=== PATIENT | male | born 1955 | race Caucasian/White ===

== ENCOUNTER → 2016-10-24 | Day surgery (SDC) | payer OTHER ==
[2016-10-16 08:03] VITALS: BMI 42.0
[~2016-10-24] VITALS: Ht 180.3 cm; Wt 137.3 kg
[~2016-10-24] MED LIST: ASPCH81X PO; ATOR-26 PO; FENTANYL CITRATE INJ 50 MCG/1 ML 2 ML VIAL ONE; GABA-112 PO; HYDR-4079 PO; HYT/2 PO; INSDGI SC; LIDOCAINE HCL 2% 2 ML VIAL (20MG/ML) ONE; LISI-786 PO; METF1TAB53 PO; NVLG SC; PROPOFOL IV EMULSION 10 MG/ML 20 ML VIAL IV ONE; SERT-234 PO; SODIUM CHLORIDE 0.9% 500ML 500 ML IV ONE; ZNTT/150 PO
--- NOTE | 2016-10-24 08:41 | Endo History and Physical ---
History & Physical Date of Service: Oct 24, 2016. Chief Complaint: Referring Physician: History of Present Illness 61 yo presenting for evaluation for screening colonoscopy Past Surgical History Hx Cardiac Surgery: No Hx Internal Defibrillator: No Hx Pacemaker: No Hx Abdominal Surgery: No Hx of Implantable Prosthesis: No Hx Post-Op Nausea and Vomiting: No Hx Cancer Surgery: No Hx Thoracic Surgery: No Hx Orthopedic: Yes (RT/LEFT CTR) Hx Urinary Tract Surgery: No Family History None Social History Smoking Status: Former Smoker Hx Substance Use: No Hx Alcohol Use: No Allergies Coded Allergies: Simvastatin (Verified Allergy, Unknown, DIDNT LIKE THE WAY HE FELT, ) Uncoded Allergies: RED GRAPES (Allergy, Unknown, COUGH, 10/16/16) Current Medications Reported Home Medications Medications Dose Route/Sig Max Daily Dose Days Date Category Dose Instructions Novolog (Insulin Aspart) 100 Units/Ml Inj 1 Dose SC TID 10/16/16 Reported 20 UNITS IN AM 25 UNITS AT LUNCH 20-25 UNITS IN PM Glucophage Ext Rel (Metformin Hcl) 1,000 Mg Tab 1,000 Mg PO QAM 10/16/16 Reported Hytrin (Terazosin HCl) 2 Mg Cap 2 Mg PO HS 10/16/16 Reported Zoloft (Sertraline HCl) 100 Mg Tab 2 Tab PO QAM 10/16/16 Reported Zantac (Ranitidine HCl) 150 Mg Tab 150 Mg PO BID 10/16/16 Reported Lantus (Insulin Glargine) 100 Unit/Ml Inj 60 Units SC BID 10/16/16 Reported Blount 10MG/325MG (Acetaminophen/Hydrocodone Bitart) Tab 1-2 Tab PO Q6H PRN 10/16/16 Reported PRN PAIN Zestoretic (Lisinopril & Hydrochlorothiazi) 1 Tab Tab 1 Tab PO BID 10/16/16 Reported Neurontin (Gabapentin) 100 Mg Cap 100 Mg PO BID 10/16/16 Reported Lipitor (Atorvastatin Calcium) 80 Mg Tab 80 Mg PO HS 10/16/16 Reported Aspirin Chewable (Aspirin) 81 Mg Chew 81 Mg PO QAM 10/16/16 Reported Vital Signs Weight (Kilograms): 137.27 Height (Feet): 0 Height (Inches): 70.5 Physical Exam General Appearance: WD/WN, no apparent distress Respiratory/Chest: Respiratory effort: no dyspnea Auscultation: breath sounds normal, CTA except as noted, no wheezing Cardiovascular: Apical Impulse: not displaced Heart Auscultation: RRR, normal S1, normal S2 Abdomen: Bowel Sounds: normal Inspection & Palpation: soft, non-distended Assessment and Plan 61 yo presenting for colonoscopy for screening
[2016-10-24 08:50] VITALS: Ht 180.3 cm; Wt 137.3 kg
--- NOTE | 2016-10-24 09:41 | Discharge Instructions ---
Endoscopy Patient Instructions Date / Procedure(s) Performed Oct 24, 2016. Colonoscopy Allergy Information Coded Allergies: Simvastatin (Verified Allergy, Unknown, DIDNT LIKE THE WAY HE FELT, 10/24/16 ) Uncoded Allergies: RED GRAPES (Allergy, Unknown, COUGH, 10/16/16) Discharge Date / Findings Oct 24, 2016. 5 polyps all removed You will be contacted with pathology Plan on repeating exam in 3 years Medication Instructions Stopped Medication(s): all medication stopped for 2 days Provider Instructions Activity Restrictions - No exercising or heavy lifting for 24 hours. - Do not drink alcohol the day of the procedure. - Do not drive a car or operate machinery until the day after the procedure. - Do not make any important decisions or sign important papers in 24 hours after the procedure. Following Day: - Return to full activity which may include returning to work/school. Diet Start your diet with liquids and light foods (jello, soup, juice, toast). Then eat your usual diet if not nauseated. Treatment For Common After Affects For mild abdominal pain, bloating, or excessive gas: - Rest - Eat lightly - Lie on right side Follow-Up Information Follow-up with Dr. Garner as scheduled Anesthesia Information What You Should Know You have had a procedure that required some medicine to reduce anxiety and discomfort. This treatment is called moderate sedation. After receiving the treatment, you may be sleepy, but you will be able to breathe on your own. The effects of the treatment may last for several hours. Follow these instructions along with Activity/Diet recommendations noted above: * Do NOT do anything where dizziness or clumsiness would be dangerous. * Rest quietly at home today, then you can be up and about tomorrow. * Have a responsible person stay with you the rest of today. * You may have had an I.V. today. If so, you may take the dressing off later today. Recommendations Call your doctor if: * Trouble breathing * Continuous vomiting for more than 24 hours * Temperature above 101 degrees * Severe abdominal pain or bloating * Pain not relieved by pain medicine ordered * There is increased drainage or redness from any incision * A large amount of rectal bleeding greater than 2-3 tablespoons. (If you had a polyp/s removed or have hemorrhoids, a small amount of blood - from the rectum is to be expected.) * You have any unanswered questions or concerns. IN THE EVENT OF A SERIOUS EMERGENCY, GO TO THE NEAREST EMERGENCY ROOM Your discharge instructions were prepared by provider Jose Armando Henning. Patient Instructions Signature Page Ko De León Patient (or Guardian) Signature/Date: I have read and understand the instructions given to me by my caregivers. Caregiver/RN/Doctor Signature/Date: The above-named patient and/or guardian has received patient instructions on this date. + Original Patient Signature Page (only) stays with chart. Please make copy for patient.
--- NOTE | 2016-10-24 09:46 | GI REPORT ---
Procedure Date: 10/24/2016 8:48 AM Procedure: Colonoscopy Indications: High risk colon cancer surveillance: Personal history of colonic polyps Medicines: General Anesthesia Complications: No immediate complications. Estimated blood loss: None. Estimated Blood Loss: Estimated blood loss: none. Procedure: Pre-Anesthesia Assessment: - Pre-Anesthesia Assessment: - Prior to the procedure, a History and Physical was performed, and patient medications, allergies and sensitivities were reviewed. The patient's tolerance of previous anesthesia was reviewed. Please see [facility] for complete details. - The risks and benefits of the procedure and the sedation options and risks were discussed with the patient. All questions were answered and informed consent was obtained. - Patient identification and proposed procedure were verified prior to the procedure by the physician and the nurse. The procedure was verified in the pre-procedure area in the procedure room. After obtaining informed consent, the endoscope was passed carefully and meticuously under direct vision and only advanced when the lumen was clearly identified, C02 insuflation was utilized throughout the entirity of the procedure. Throughout the procedure, the patient's blood pressure, pulse, and oxygen saturations were monitored continuously. After I obtained informed consent, the scope was passed under direct vision. Throughout the procedure, the patient's blood pressure, pulse, and oxygen saturations were monitored continuously. The Scope was introduced through the anus and advanced to the terminal ileum, with identification of the appendiceal orifice and IC valve. The colonoscopy was performed without difficulty. The patient tolerated the procedure well. The quality of the bowel preparation was fair. Findings: Two sessile polyps were found in the ascending colon. The polyps were 3 to 4 mm in size. These polyps were removed with a cold snare. Resection and retrieval were complete. Three sessile polyps were found in the transverse colon. The polyps were 3 to 4 mm in size. These polyps were removed with a cold snare. Resection and retrieval were complete. Multiple small-mouthed diverticula were found in the sigmoid colon and in the descending colon. The terminal ileum appeared normal. Internal hemorrhoids were found during retroflexion. Impression: - Two 3 to 4 mm polyps in the ascending colon, removed with a cold snare. Resected and retrieved. - Three 3 to 4 mm polyps in the transverse colon, removed with a cold snare. Resected and retrieved. - Diverticulosis in the sigmoid colon and in the descending colon. - The examined portion of the ileum was normal. - Internal hemorrhoids. Recommendation: - Repeat colonoscopy in 3 years for surveillance based on pathology results. - Return to referring physician as previously scheduled. - Patient has a contact number available for emergencies. The signs and symptoms of potential delayed complications were discussed with the patient. Return to normal activities tomorrow. Written discharge instructions were provided to the patient. - Discharge patient to home (with escort). Jose Armando Henning MD 10/24/2016 9:46:26 AM This report has been signed electronically. Note Initiated On: 10/24/2016 8:48 AM
[2016-10-24 10:09] VITALS: BP 141/72; PULSE 86; O2SAT 93
--- NOTE | 2016-10-24 10:51 | Anesthesiology Progress Note ---
Anesthesia Post Op Note Date & Time Oct 24, 2016 at 10:51 Vital Signs Pain Intensity: 0 Vital Signs Past 12 Hours Date Time Temp Pulse Resp B/P Pulse Ox O2 Delivery O2 Flow Rate FiO2 10/24/16 10:09 86 18 141/72 93 Room Air 10/24/16 09:54 90 18 138/75 92 Room Air 10/24/16 09:39 96 16 129/73 92 Room Air 10/24/16 08:58 37.1 97 20 177/76 92 Room Air Notes Mental Status: alert / awake / arousable, participated in evaluation Pt Amnestic to Procedure: Yes Nausea / Vomiting: adequately controlled Pain: adequately controlled Airway Patency, RR, SpO2: stable & adequate BP & HR: stable & adequate Hydration State: stable & adequate Anesthetic Complications: no major complications apparent
== END | disposition home or self-care (01) ==
LOC: C.GI 08:03
PROVIDERS: ATTEND Internal Medicine
DX: Z12.11 Encounter for screening for malignant neoplasm of colon (principal); Z86.010 Personal history of colon polyps; D12.2 Benign neoplasm of ascending colon; D12.3 Benign neoplasm of transverse colon; K57.30 Diverticulosis of large intestine without perforation or abscess without bleeding; K64.8 Other hemorrhoids; Z87.891 Personal history of nicotine dependence; Z79.4 Long term (current) use of insulin; Z79.82 Long term (current) use of aspirin; Z88.8 Allergy status to other drugs, medicaments and biological substances

== ENCOUNTER → 2017-06-04 | Outpatient (CLI) | payer OTHER ==
[~2017-06-04] MED LIST changes: -FENTANYL CITRATE INJ 50 MCG/1 ML 2 ML VIAL ONE; -LIDOCAINE HCL 2% 2 ML VIAL (20MG/ML) ONE; -PROPOFOL IV EMULSION 10 MG/ML 20 ML VIAL IV ONE; -SODIUM CHLORIDE 0.9% 500ML 500 ML IV ONE
--- NOTE | 2017-06-05 06:34 | SPLIT NIGHT TECHNICIAN REPORT ---
[facility] Split Night Polysomnogram - Social Science Teacher Report Study date: 06/04/2017 Referring Physician: MASSIMO LEDEZMA Name: WALKER DE LEÓN Social Science Teacher: ANAHY Mckeon. Date of : 1955 Height: 62 years, Height 5' 10.5" Sex: Male Weight: 340 lbs Age: 62 BMI: Medications: 48.09 Hydrocodone/Acetaminophen 7.5/325 mg, HCTZ12.5/Lisinopril 20 mg, Sertraline 100 mg, Aspirin 81 mg, Ranitidine 150 mg, Terazosin 2 mg, Gabapentin 300 mg, Atorvastatin 80 mg, Cyclobenzaprine 10 mg, Insulin, Fluticasone Patient History 62 yr. old male here for a diagnostic sleep study in room 2. Patient complains of snoring, and unrefreshed sleep. Patients [place] Sleepiness Scale score is 9/24. Parameters Monitored NPSG: E1-M2, E2-M1, Fp1-M2, Fp2-M1, F3-M2, F4-M2, F4-M1, C3-M2, C4-M2, C4-M1, O1-M2, O2-M2, O2-M1, T3-M2, T4-M1, P3-M2, P4-M1, CHIN1, CHIN2, HR, EKG, Legs, PFLOW, SNOR, FLOW, CFLOW, Tidal Volume, THOR, ABDO, SpO2, PLTH, CPRESS, ETCO2 Wave, ETCO2, pH SLEEP SUMMARY DATA DIAGNOSTIC TREATMENT Lights Out: 7:44:41 PM 11:06:11 PM Lights On: 11:00:11 PM 6:08:11 AM Total Recording Time (TRT): 195.5 min. 423.0 min. Total Sleep Time (TST): 148.5 min. 352.0 min. NREM Time: 148.5 min. 275.0 min. REM Time: 0.0 min. 77.0 min. Sleep Period Time (SPT): 161.5 min. 415.0 min. Sleep Efficiency (SE): 76 % 83 % Sleep Latency: 34.0 min. 7.0 min. Arousal Index: 23.8 4.4 PAP Treatment Levels: 4, 5, 6, 7, 8, 9, 10, 11, 12, 13, 14 * Optimal Pressure(s) SLEEP STAGING DATA DIAGNOSTIC TREATMENT Duration (min) TST % Duration (min) TST % Stage Wake: 47.0 min. -- 70.0 min. -- WASO: 13.0 min. -- 63.0 min. -- NREM: 148.5 min. 100 % 275.0 min. 78 % Stage N1: 34.0 min. 23 % 26.5 min. 8 % Stage N2: 114.5 min. 77 % 142.5 min. 40 % Stage N3: 0.0 min. 0 % 106.0 min. 30 % REM: 0.0 min. 0 % 77.0 min. 22 % POSITIONAL DATA Event Count Index Event Count Index Supine: 144 59.4 N/A N/A Supine NREM: 144 59.4 N/A N/A Supine REM: N/A N/A N/A N/A Non-Supine: 1 20.0 82 13.8 Non-Supine NREM: 1 20.0 57 12.2 Non-Supine REM: N/A N/A 25 19.5 AROUSAL SUMMARY DATA: Event Count Index Event Count Index Apnea Arousals: 10 12.1 0 1.9 Hypopnea Arousals: 21 8.5 7 1.2 Snore Arousals: 14 5.7 4 0.7 PLM Arousals: 0 0.0 9 1.5 Non-Specific Arousals: 15 6.1 6 1.0 Total Arousals: 59 23.8 26 4.4 MYOCLONUS (PLM) Event Count Index Event Count Index PLM: 0 0.0 86 14.7 PLM AROUSAL: 0 0.0 9 1.5 PLM W/O AROUSAL 0 0.0 77 13.1 PLM W/RESP EVENT 0 0.0 1 0.0 MYOCLONUS (PLM) Event Count Index Event Count Index LM: 4 11.7 88 15.0 LM AROUSAL: 4 1.6 2 0.3 LM W/O AROUSAL LM W/RESP EVENT LM NON SPECIFIC 19 7.7 155 26.4 HEART RATE DATA DIAGNOSTIC TREATMENT Sleep (bpm): 80 80 REM (bpm): N/A 84 NREM (bpm): 88 87 Tachycardia Count: 0 0 Tachycardia Duration: 0.00 0 Bradycardia Count: 0 0 Bradycardia Duration: 0.00 0 DIAGNOSTIC PORTION TREATMENT PORTION RESPIRATORY DATA Event Count Index Event Count Index AHI: -- 58.6 -- 13.8 RDI: -- 58.6 -- 14 Obstructive Apnea: 29 11.7 10 1.7 Central Apnea: 1 0.4 1 0.2 Mixed Apnea: 0 0.0 0 0.0 Hypopnea: 115 46.5 70 11.9 RERA: 0 0.0 1 0.2 Total Apneas: 30 12.1 11 1.9 RESPIRATORY DATA REM NREM SLEEP REM NREM SLEEP Supine Position: Obstructive Apneas: N/A 29 29 N/A N/A N/A Central Apneas: N/A 1 1 N/A N/A N/A Mixed Apneas: N/A 0 0 N/A N/A N/A Hypopneas: N/A 114 114 N/A N/A N/A RERA N/A 0 0 N/A N/A N/A Total Supine Events: N/A 144 144 N/A N/A N/A Supine AHI: N/A 59.4 59.4 N/A N/A N/A Supine RDI: N/A 59.4 59.4 N/A N/A N/A REM NREM SLEEP REM NREM SLEEP Non-Supine Position: Obstructive Apneas: N/A 0 0 9 1 10 Central Apneas: N/A 0 0 1 0 1 Mixed Apneas: N/A 0 0 0 0 0 Hypopneas: N/A 1 1 15 55 70 RERA N/A 0 0 0 1 1 Total Supine Events: N/A 1 1 25 57 82 Supine AHI: N/A 20.0 20.0 19.5 12.2 13.8 Supine RDI: N/A 20.0 20.0 19.5 12.4 14.0 OXYGEN DESTAURATION DATA: Event Count Index Event Count Index REM Desaturations: N/A N/A 28 21.8 NREM Desaturations: 205 82.8 75 16.4 SNORE DATA DIAGNOSTIC TREATMENT Snore Time: 6.5 11:13:11 PM Snore TST%: 2 13 Snore Arousal Count: 14 4 Snore Arousal Index: 5.7 0.7 Desaturation Event Summary: Minimum %SpO2 Event Count Mean/Min/Max Duration(sec.) Desaturation Index % Time In Bed > 90 115 22.5 / 5.5 / 60.0 122.0 9.5 86 - 90 281 16.1 / 4.3 / 60.0 40.7 69.4 81 - 85 26 17.9 / 5.8 / 54.3 14.5 18.1 76 - 80 10 24.3 / 8.8 / 43.3 70.2 1.4 71 - 75 5 18.6 / 8.8 / 31.3 61.8 0.8 66 - 70 5 21.4 / 9.0 / 51.5 139.3 0.4 61 - 65 1 14.5 / 14.5 / 14.5 34.5 0.3 56 - 60 0 N/A 0.0 0.1 51 - 55 0 N/A 0.0 0.0 < 50 0 N/A 0.0 0.0 OXYGEN SATURATION DATA DIAGNOSTIC TREATMENT SpO2 Mean Sleep: 88 % 86 % SpO2 Mean REM: N/A % 84 % SpO2 Mean NREM: 88 % 87 % SpO2 Minimum Sleep: 76 % 57 % SpO2 Minimum REM: N/A % 57 % SpO2 Minimum NREM: 76 % 64 % Time Below 90% (TST): 119.3 314.0 Time Below 88% (TST): 74.5 226.4 Total REM NREM Awake <50% 0.0 min. 0.0 min. 0.0 min. 0.0 min. 51 - 60% 0.9 min. 0.9 min. 0.0 min. 0.0 min. 61 - 70% 3.9 min. 3.8 min. 0.1 min. 0.0 min. 71 - 80% 13.4 min. 11.4 min. 1.7 min. 0.3 min. 81 - 90% 522.5 min. 59.1 min. 394.6 min. 68.8 min. 91 - 100% 56.5 min. 1.5 min. 26.7 min. 28.4 min. Average 87 84 87 89 Minimum SpO2 57 57 64 78 Desaturation Event Index 33.9 21.8 39.7 23.6 # Desat. Events below 89% 339 28 273 38 Time(%) with Saturation below 89% 70.0 9.4 53.7 6.9 Time(min.) with Saturation below 89% 417.8 56.2 320.7 41.0 Recording Social Science Teacher Comments: Mr. De León slept in the right, left, and, supine positions. Cardiac arrhythmia ( occasional PVC) and PLMs noted. No bruxism noted. Snoring was noted and scored as a 4 on a scale of 0 through 5. (0=no snoring, 5=snoring loud enough to be heard through a closed door or down the beltran way) At 11:06 pm Mr. De León met specific Split-Night criteria during the diagnostic portion of this study. CPAP was initiated at +4 CMH2O room air and up-titrated to a level of +12 CMH2O Cflex 2. At 4:20 am oxygen was started, he was on 11 CWP for over two hours. REM was achieved for the first time after 02 was added and his pressure needed increased, oxygen was turned off. A ResMed Mirage FX nasal mask was used during titration Mr. De León awoke to use the restroom two times during the night. Mr. De León stated, "this was a normal night for me". The final report will be interpreted and signed by a sleep physician. The completed physician report will then be placed in the patient medical record. Therapy Event: Therapy (cm H20) 0 4 5 6 7 8 Total Time at Pressure (min.) 195.5 28.1 14.8 16.6 15.0 9.8 TST at Pressure (min.) 148.5 19.1 14.3 15.6 14.0 9.8 # Periods 1 1 1 1 1 1 Sleep Onset (min.) 34.0 7.0 0.0 0.0 0.0 0.0 REM Onset (min.) N/A N/A N/A N/A N/A N/A Sleep Efficiency % 76 68 96 94 93 100 Wakefulness (%) 24.0 32.0 3.4 6.0 6.7 0.0 Wakefulness (min.) 47.0 9.0 0.5 1.0 1.0 0.0 NREM 1 (%) 17.4 16.0 13.5 9.0 10.0 0.0 NREM 1 (min.) 34.0 4.5 2.0 1.5 1.5 0.0 NREM 2 (%) 58.6 52.0 83.1 84.9 70.3 0.0 NREM 2 (min.) 114.5 14.6 12.3 14.1 10.5 0.0 NREM 3 (%) 0.0 0.0 0.0 0.0 13.0 100.0 NREM 3 (min.) 0.0 0.0 0.0 0.0 1.9 9.8 REM (%) 0.0 0.0 0.0 0.0 0.0 0.0 REM (min.) 0.0 0.0 0.0 0.0 0.0 0.0 # Arousals 59 2 1 3 2 0 Arousal Index 23.8 6.3 4.2 11.5 8.6 0.0 # Snore 255 1 6 33 44 106 Snore Index 103.0 3.1 25.2 126.9 189.2 649.3 AHI 58.6 12.6 16.8 46.1 47.3 30.6 AHI Supine 59.4 N/A N/A N/A N/A N/A AHI Non-Supine 20.0 12.6 16.8 46.1 47.3 30.6 NREM AHI 58.6 12.6 16.8 46.1 47.3 30.6 REM AHI N/A N/A N/A N/A N/A N/A RDI 58.6 15.7 16.8 46.1 47.3 30.6 # Obstructive 29 0 0 0 0 0 # Central Ap 1 0 0 0 0 0 # Mixed 0 0 0 0 0 0 # Hypopneas 115 4 4 12 11 5 RERAS 0 1 0 0 0 0 Total Respiratory Events 145 5 4 12 11 5 Time Below SpO2 89.00% (min.) 101.6 8.0 13.0 14.6 12.9 9.8 Mean NREM SpO2 (%) 88 89 87 86 86 84 Mean REM SpO2 (%) N/A N/A N/A N/A N/A N/A Mean Sleep SpO2 (%) 88 89 87 86 86 84 Min NREM SpO2 (%) 76 82 81 80 80 80 Min REM SpO2 (%) N/A N/A N/A N/A N/A N/A Position Supine (min.) 145.5 0.0 0.0 0.0 0.0 0.0 Position Non-supine (min.) 3.0 19.1 14.3 15.6 14.0 9.8 LM Index Sleep 11.7 3.1 0.0 15.4 25.8 0.0 LM Index NREM 11.7 3.1 0.0 15.4 25.8 0.0 LM Index REM N/A N/A N/A N/A N/A N/A Mean Heart Rate (bpm) 80 82 80 79 78 77 Min Heart Rate (bpm) 69 78 78 73 71 68 Therapy (cm H20) 9 10 11 12 13 14 Total Time at Pressure (min.) 26.9 78.9 151.1 8.3 13.3 59.4 TST at Pressure (min.) 23.8 45.5 130.1 8.3 13.3 58.4 # Periods 1 1 1 1 1 1 Sleep Onset (min.) 0.0 2.9 0.0 0.0 0.0 0.0 REM Onset (min.) N/A N/A 142.5 0.0 0.0 0.0 Sleep Efficiency % 88 57 86 100 100 98 Wakefulness (%) 11.5 42.4 13.9 0.0 0.0 1.7 Wakefulness (min.) 3.1 33.4 21.0 0.0 0.0 1.0 NREM 1 (%) 7.4 8.9 4.0 0.0 0.0 3.4 NREM 1 (min.) 2.0 7.0 6.0 0.0 0.0 2.0 NREM 2 (%) 46.5 36.8 26.8 0.0 0.0 15.2 NREM 2 (min.) 12.5 29.0 40.5 0.0 0.0 9.0 NREM 3 (%) 34.5 12.0 50.0 0.0 0.0 0.0 NREM 3 (min.) 9.3 9.5 75.5 0.0 0.0 0.0 REM (%) 0.0 0.0 5.3 100.0 100.0 79.8 REM (min.) 0.0 0.0 8.1 8.3 13.3 47.4 # Arousals 3 6 7 1 0 1 Arousal Index 7.6 7.9 3.2 7.3 0.0 1.0 # Snore 107 111 1,096 18 28 204 Snore Index 270.2 146.5 505.4 130.7 126.3 209.7 AHI 17.7 4.0 6.0 50.8 40.6 6.2 AHI Supine N/A N/A N/A N/A N/A N/A AHI Non-Supine 17.7 4.0 6.0 50.8 40.6 6.2 NREM AHI 17.7 4.0 3.9 N/A N/A 10.9 REM AHI N/A N/A 37.2 50.8 40.6 5.1 RDI 17.7 4.0 6.0 50.8 40.6 6.2 # Obstructive 0 0 4 5 0 1 # Central Ap 0 0 0 0 0 1 # Mixed 0 0 0 0 0 0 # Hypopneas 7 3 9 2 9 4 RERAS 0 0 0 0 0 0 Total Respiratory Events 7 3 13 7 9 6 Time Below SpO2 89.00% (min.) 23.8 39.8 100.3 6.2 12.6 34.3 Mean NREM SpO2 (%) 85 87 87 N/A N/A 90 Mean REM SpO2 (%) N/A N/A 80 80 78 88 Mean Sleep SpO2 (%) 85 87 87 80 78 88 Min NREM SpO2 (%) 82 83 64 N/A N/A 84 Min REM SpO2 (%) N/A N/A 59 57 69 78 Position Supine (min.) 0.0 0.0 0.0 0.0 0.0 0.0 Position Non-supine (min.) 23.8 45.5 130.1 8.3 13.3 58.4 LM Index Sleep 12.6 39.6 27.2 43.6 49.6 53.5 LM Index NREM 12.6 39.6 24.1 N/A N/A 43.6 LM Index REM N/A N/A 74.4 43.6 49.6 55.7 Mean Heart Rate (bpm) 77 82 79 82 83 79 Min Heart Rate (bpm) 72 77 56 64 76 63
--- NOTE | 2017-06-06 17:47 | POLYSOMNOGRAPH REPORT ---
CLINICAL DATA: A 62-year-old male with BMI of 48 referred by DARIEN Moreno for a diagnostic sleep study. He has snoring and unrefreshing sleep. His [place] sleepiness score is 9/24. This was a split night study. SLEEP ARCHITECTURE: For the diagnostic portion of the study, total recording time was 195.5 minutes. Total sleep period was 161.5 minutes. Total sleep time was 148.5 minutes, all non-REM sleep. Sleep latency was 34 minutes. Sleep efficiency was 76%. Arousal index was 20.8. Sleep consisted of stage N1 22%, stage N2 77%. For the treatment portion of the study, total recording time was 423 minutes. Total sleep period was 415 minutes. Total sleep time was 352 minutes divided between 275 minutes of non-REM sleep and 77 minutes of REM sleep. Sleep efficiency was 83%. Sleep latency was 7 minutes. Arousal index was 4.4. Sleep consisted of stage N1 8%, stage N2 40%, stage N3 30%, and REM 22%. AROUSAL DATA: Prior to treatment, 59 arousals were recorded for an index of 23.8 per hour. During treatment, 26 arousals recorded for an index of 4.4 per hour. PERIODIC LIMB MOVEMENTS DATA: Prior to treatment, 19 limb movements during sleep were noted for an index of 7.7 per hour. During treatment, 155 limb movements were noted for an index of 26.4 per hour. ELECTROCARDIOGRAM: Heart rates ranged from 80-87 beats per minute. Occasional PVCs were noted. RESPIRATORY DATA: Severe sleep apnea was diagnosed prior to treatment. The diagnostic AHI was 58.6. There were 29 obstructive and 1 central apneic episode and 115 hypopneic episodes. The average AHI during treatment was 13.8. There were 10 obstructive and 1 central apneic episodes and 70 hypopneic episodes. OXIMETRY DATA: Nocturnal hypoxemia was seen. Oxygen nam of 57% during REM. The mean saturation for the treatment was 86%. EXECUTIVE DIRECTOR [employer]'S COMMENTS: The patient slept in the right, left, and supine positions. Snoring was severe, rated 4 on a scale of 1-5. At 11:06 p.m., he met split night criteria. He used a ResMed Mirage nasal mask. He was started on CPAP and titrated up to his final pressure setting of CPAP 12 cm of water pressure, C-Flex setting 2. In spite of control of his sleep apnea, he continued to have nocturnal hypoxemia, so oxygen was added to his regimen and his pressure was increased. At his final pressure setting of 14 cm of water pressure, the patient slept for 58 minutes with an AHI of 6.2 with borderline oxygenation. IMPRESSION: Severe sleep apnea/hypopnea with severe nocturnal hypoxemia with a diagnostic apnea-hypopnea index of 58.6 and an oxygen nam of 57%, improved with CPAP 14 cm of water pressure, C-flex 2 with improvement in his sleep apnea but borderline oxygenation. RECOMMENDATIONS: The patient should be started on CPAP 14 cm of water pressure, C-Flex setting 2 with a ResMed Mirage FX nasal mask. Oxygen 2 liters per minute is recommended as well. MTDD
== END | disposition home or self-care (01) ==
LOC: C.NEUR 20:00
PROVIDERS: ATTEND Nurse Practitioner Adult Health
DX: G47.30 Sleep apnea, unspecified (principal); R09.02 Hypoxemia; E66.01 Morbid (severe) obesity due to excess calories